=== PATIENT | female | born 1985 | race Caucasian/White ===

== ENCOUNTER 2018-06-25 13:41 | Outpatient (CLI) | payer OTHER | END 2018-06-25 13:42 | disposition home or self-care (01) | LOC: LAB 13:41 | DX: Z01.84 Encounter for antibody response examination (principal) ==

== ENCOUNTER 2018-08-02 01:51 | Emergency (ER) | payer BC, OTHER ==
[2018-08-02 01:54] VITALS: BMI 21.9
[2018-08-02 02:00] VITALS: RESP 18; TEMP 98.2
--- NOTE | 2018-08-02 02:09 | ED PDOC ---
Arrival/HPI - General Chief Complaint: Flu-like Symptoms Time Seen by Provider: 08/02/18 01:55 Historian: Patient - History of Present Illness Narrative History of Present Illness (Text): 08/02/18 02:06 33 year old female, whose past medical history includes history of PPD positive, presents to the emergency department complaining of cold congestion, cough, and body aches for the past 2 days. Patient denies any fever, hemoptysis, chest pain, shortness of breath, nausea, vomiting, diarrhea, urinary symptoms, back pain, neck pain, headache, dizziness, or any other complaints. Time/Duration: Other (2 days) Symptom Onset: Gradual Symptom Course: Unchanged Activities at Onset: Light Context: Home Past Medical History - Provider Review Nursing Documentation Reviewed: Yes - Reproductive Currently : Unknown - Cardiac Hx Cardiac Disorders: No - Pulmonary Hx Respiratory Disorders: No - Neurological Hx Neurological Disorder: No - HEENT Hx HEENT Disorder: No - Renal Hx Renal Disorder: No - Endocrine/Metabolic Hx Endocrine Disorders: No - Hematological/Oncological Hx Blood Disorders: No - Integumentary Hx Dermatological Disorder: No - Musculoskeletal/Rheumatological Hx Musculoskeletal Disorders: No - Gastrointestinal Hx Gastrointestinal Disorders: No - Genitourinary/Gynecological Hx Genitourinary Disorders: Yes Other/Comment: pt is G6,P3,MISCA 2. Ovarian Cyst. - Psychiatric Hx Psychophysiologic Disorder: No Hx Substance Use: No - Surgical History Hx Appendectomy: Yes Family/Social History - Physician Review Nursing Documentation Reviewed: Yes Family/Social History: No Known Family HX Smoking Status: Never Smoked Hx Alcohol Use: No Hx Substance Use: No Allergies/Home Meds Allergies/Adverse Reactions: Allergies No Known Allergies Allergy (Verified 08/02/18 01:54) Home Medications: Home Meds Medication Instructions Recorded Confirmed Desogestrel-Ethinyl Estradiol 1 tab PO DAILY 08/02/18 08/02/18 [Reclipsen 0.15 mg-0.03 mg] Review of Systems - Physician Review All systems were reviewed & negative as marked: Yes - Review of Systems Constitutional: absent: Fevers ENT: Sinus Congestion Respiratory: Cough. absent: SOB Cardiovascular: absent: Chest Pain Gastrointestinal: absent: Diarrhea, Nausea, Vomiting Genitourinary Female: absent: Dysuria, Frequency, Hematuria Musculoskeletal: absent: Back Pain, Neck Pain Neurological: absent: Headache, Dizziness Physical Exam Vital Signs Reviewed: Yes Vital Signs Temp Pulse Resp Pulse Ox 08/02/18 01:54 98.2 F 110 H 18 98 Temperature: Afebrile Pulse: Tachycardic Respiratory Rate: Normal Appearance: Positive for: Well-Appearing, Non-Toxic, Comfortable Pain Distress: None Mental Status: Positive for: Alert and Oriented X 3 - Systems Exam Head: Present: Atraumatic, Normocephalic Pupils: Present: PERRL Extroacular Muscles: Present: EOMI Conjunctiva: Present: Normal Mouth: Present: Moist Mucous Membranes Neck: Present: Normal Range of Motion Respiratory/Chest: Present: Clear to Auscultation, Good Air Exchange. No: Respiratory Distress, Accessory Muscle Use Cardiovascular: Present: Regular Rate and Rhythm, Normal S1, S2. No: Murmurs Abdomen: No: Tenderness, Distention, Peritoneal Signs Back: Present: Normal Inspection Upper Extremity: Present: Normal Inspection. No: Cyanosis, Edema Lower Extremity: Present: Normal Inspection. No: Edema Neurological: Present: GCS=15, CN II-XII Intact, Speech Normal Skin: Present: Warm, Dry, Normal Color. No: Rashes Psychiatric: Present: Alert, Oriented x 3, Normal Insight, Normal Concentration Medical Decision Making ED Course and Treatment: 08/02/18 02:11 Impression: 33 year old female presents complaining of cold, congestion, and body aches for the past 2 days. Plan: -- CXR -- Influenza A B -- Reassess and disposition Prior Visits: Notes and results from previous visits were reviewed. Progress Notes: 08/02/18 02:42 (+)ppd pos in past. cxr neg. susepct viral syndorme vs influenza. stable for dc - Lab Interpretations I have reviewed the lab results: Yes - RAD Interpretation Radiology Orders: 08/02/18 02:06 CXR [CHEST TWO VIEWS (PA/LAT)] [RAD] Stat Disability Program Navigator: ED Physician - Scribe Statement The provider has reviewed the documentation as recorded by the Mary Rodríguez Provider Scribe Attestation: All medical record entries made by the Scribe were at my direction and personally dictated by me. I have reviewed the chart and agree that the record accurately reflects my personal performance of the history, physical exam, medical decision making, and the department course for this patient. I have also personally directed, reviewed, and agree with the discharge instructions and disposition. Disposition/Present on Arrival - Present on Arrival Any Indicators Present on Arrival: No History of DVT/PE: No History of Uncontrolled Diabetes: No Urinary Catheter: No History of Decub. Ulcer: No History Surgical Site Infection Following: None - Disposition Have Diagnosis and Disposition been Completed?: Yes Diagnosis: Viral syndrome Disposition: HOME/ ROUTINE Disposition Time: 02:30 Condition: STABLE Discharge Instructions (ExitCare): Flu, Cough, Runny Nose, and the Common Cold Additional Instructions: return to er with worsening symptoms or concerns. Prescriptions: Oseltamivir Phosphate [Tamiflu] 75 mg PO BID #10 capsule Referrals: [facility] [Outside] - Follow up with primary [facility] at [facility] [place] [Outside] - Follow up with primary Forms: [facility] (Mauritanian), WORK NOTE
[2018-08-02 02:35] VITALS: BP 121/70; PULSE 98; O2SAT 100
--- NOTE | 2018-08-02 09:36 | RAD ---
Date of service: 08/02/2018 HISTORY: cough COMPARISON: Comparison chest dated 10/01/2014 TECHNIQUE: Chest PA and lateral FINDINGS: LUNGS: Lung murguia are hyperinflated though otherwise clear; rule out underlying COPD. PLEURA: No significant pleural effusion identified. No pneumothorax apparent. CARDIOVASCULAR: No aortic atherosclerotic calcification present. Normal cardiac size. No pulmonary vascular congestion. OSSEOUS STRUCTURES: Minor multilevel degenerative spondylosis of the thoracic spine VISUALIZED UPPER ABDOMEN: Normal. OTHER FINDINGS: None. IMPRESSION: Hyperinflation; rule out C underlying COPD. No acute infiltrates.
== END 2018-08-02 02:34 | disposition home or self-care (01) ==
LOC: ED 01:51
DX: B34.9 Viral infection, unspecified (principal)

== ENCOUNTER 2018-09-12 09:48 | Outpatient (CLI) | payer OTHER, BC | END 2018-09-12 09:49 | disposition home or self-care (01) | LOC: LAB 09:48 ==

== ENCOUNTER 2018-09-22 10:28 | Emergency (ER) | payer BC, OTHER ==
[2018-09-22 10:29] VITALS: BMI 22.4
[2018-09-22 10:36] VITALS: RESP 18; TEMP 97.3; O2SAT 100
--- NOTE | 2018-09-22 10:59 | ED PDOC ---
Arrival/HPI - General Historian: Patient - History of Present Illness Narrative History of Present Illness (Text): 09/22/18 10:56 33 y/o female, no significant pmh, nkda, c/o cough x 2 weeks. Pt. stated that she has been coughing x 2 weeks, productive coughing, associated with sorethroat and voice hoarseness today, no chest pain or shortness of breath, no night sweat, no dizziness, no change in vision, no other medical or psychological complaints. Past Medical History - Provider Review Nursing Documentation Reviewed: Yes - Cardiac Hx Cardiac Disorders: No - Pulmonary Hx Respiratory Disorders: No - Neurological Hx Neurological Disorder: No - HEENT Hx HEENT Disorder: No - Renal Hx Renal Disorder: No - Endocrine/Metabolic Hx Endocrine Disorders: No - Hematological/Oncological Hx Blood Disorders: No - Integumentary Hx Dermatological Disorder: No - Musculoskeletal/Rheumatological Hx Musculoskeletal Disorders: No - Gastrointestinal Hx Gastrointestinal Disorders: No - Genitourinary/Gynecological Hx Genitourinary Disorders: Yes Other/Comment: pt is G6,P3,MISCA 2. Ovarian Cyst. - Psychiatric Hx Psychophysiologic Disorder: No Hx Substance Use: No - Surgical History Hx Appendectomy: Yes Family/Social History - Physician Review Nursing Documentation Reviewed: Yes Family/Social History: Unknown Family HX Smoking Status: Never Smoked Hx Alcohol Use: No Hx Substance Use: No Allergies/Home Meds Allergies/Adverse Reactions: Allergies No Known Allergies Allergy (Verified 08/02/18 01:54) Home Medications: Home Meds Medication Instructions Recorded Confirmed Desogestrel-Ethinyl Estradiol 1 tab PO DAILY 08/02/18 08/02/18 [Reclipsen 0.15 mg-0.03 mg] Review of Systems - Review of Systems Constitutional: absent: Fatigue, Fevers Eyes: absent: Vision Changes ENT: Sore Throat. absent: Hearing Changes, Rhinorrhea Respiratory: Cough, Sputum. absent: SOB, Wheezing Cardiovascular: absent: Chest Pain Gastrointestinal: absent: Abdominal Pain, Diarrhea, Nausea, Vomiting Musculoskeletal: absent: Arthralgias, Back Pain Skin: absent: Rash, Pruritis Neurological: absent: Headache Psychiatric: absent: Anxiety, Depression, Suicidal Ideation Physical Exam Vital Signs Reviewed: Yes Vital Signs Temp Pulse Resp BP Pulse Ox 09/22/18 10:35 97.3 F L 109 H 18 108/62 100 Temperature: Afebrile Blood Pressure: Normal Pulse: Tachycardic Respiratory Rate: Normal Appearance: Positive for: Well-Appearing, Non-Toxic, Comfortable Pain Distress: None Mental Status: Positive for: Alert and Oriented X 3 - Systems Exam Head: Present: Atraumatic, Normocephalic Pupils: Present: PERRL Extroacular Muscles: Present: EOMI Conjunctiva: Present: Normal Mouth: Present: Moist Mucous Membranes Pharnyx: Present: Other (+voice hoarseness). No: ERYTHEMA, EXUDATE, TONSILS ENLARGED, Peritonsilar Swelling, Uvular Deviation, Strider, Soft Palate/Uvular Edema Nose (External): Present: Atraumatic. No: Abrasion, Contusion, Laceration, Lesions Nose (Internal): Present: Normal Inspection, No Active Bleeding. No: Rhinorrhea, Septal Hematoma Neck: Present: Normal Range of Motion, Trachea Midline. No: MIDLINE TENDERNESS, Paraspinal Tenderness, Lymphadenopathy Respiratory/Chest: Present: Clear to Auscultation, Good Air Exchange. No: Respiratory Distress, Accessory Muscle Use, Wheezes, Decreased Breath Sounds, Rales, Retracting, Rhonchi, Tachypneic, Tender to Palpation Cardiovascular: Present: Regular Rate and Rhythm, Normal S1, S2. No: Murmurs Abdomen: No: Tenderness, Distention, Peritoneal Signs Back: Present: Normal Inspection Upper Extremity: Present: Normal Inspection. No: Cyanosis, Edema Lower Extremity: Present: Normal Inspection. No: Edema Neurological: Present: GCS=15, CN II-XII Intact, Speech Normal, Motor Func Grossly Intact, Normal Cerebellar Funct Skin: Present: Warm, Dry, Normal Color. No: Rashes Psychiatric: Present: Alert, Oriented x 3, Normal Insight, Normal Concentration Medical Decision Making ED Course and Treatment: 09/22/18 10:58 -Urine hcg is negative -Chest xray -Observe and reassess 09/22/18 11:12 -Chest xray ER wet read show no active disease. -will obtain labs to r/o PE as she is on control, tachycardia -Labs ordered 09/22/18 13:00 -Labs are non-significant except wbc 14 (afebrile, stress induced) -Dimer is negative -Trop is negative -I will treat the patient for bronchitis/pneumonia, rocephine and azithromycin ordered. Her HR improved from 115 to 94 with IVF, no more pain, will discharge home. -Discharge home with prednisone, zithromax, albuterol MDI, coughing syrup, bed rest, stay hydrated, follow up with your own pmd and pulmonlogist within 2 days, return to the ER for any new or worsening signs or symptoms. - RAD Interpretation Radiology Orders: 09/22/18 10:54 CHEST TWO VIEWS (PA/LAT) [RAD] Stat - PA / DUMPER OPERATOR / Resident Statement MD/DO has reviewed & agrees with the documentation as recorded. Disposition/Present on Arrival - Present on Arrival Any Indicators Present on Arrival: No History of DVT/PE: No History of Uncontrolled Diabetes: No Urinary Catheter: No History of Decub. Ulcer: No History Surgical Site Infection Following: None - Disposition Have Diagnosis and Disposition been Completed?: Yes Diagnosis: Leukocytosis, Bronchitis, Laryngitis Disposition: HOME/ ROUTINE Disposition Time: 13:02 Patient Plan: Discharge Condition: IMPROVED Discharge Instructions (ExitCare): Acute Bronchitis Additional Instructions: -Discharge home with prednisone, zithromax, albuterol MDI, coughing syrup, bed rest, stay hydrated, follow up with your own pmd and pulmonlogist within 2 days, repeat wbc within 1 week to ensure it's trending down as it is 14 today, return to the ER for any new or worsening signs or symptoms. Prescriptions: Albuterol HFA [Ventolin HFA 90 mcg/actuation (8 g)] 2 puff IH [id number] PRN #1 inhaler PRN Reason: Other Azithromycin [Zithromax] 250 mg PO DAILY #4 tab Prednisone 50 mg PO DAILY #5 tablet Promethazine HCl/Codeine [Promethazine-Codeine Syrup] 5 ml PO QID PRN #100 ml PRN Reason: Other Referrals: Desiree Ramirez MD [Primary Care Provider] - Follow up with primary Forms: WORK NOTE
[2018-09-22] MEDS ORDERED: Sodium Chloride 0.9% 1,000 ML IV STA (11:20)
--- NOTE | 2018-09-22 11:45 | RAD ---
Date of service: 09/22/2018 HISTORY: cough x 2 weeks COMPARISON: 08/02/2018 TECHNIQUE: Chest PA and lateral views FINDINGS: LUNGS: No active pulmonary disease. PLEURA: No significant pleural effusion identified. No pneumothorax apparent. CARDIOVASCULAR: No aortic atherosclerotic calcification present. Normal cardiac size. No pulmonary vascular congestion. OSSEOUS STRUCTURES: No significant abnormalities. VISUALIZED UPPER ABDOMEN: Normal. OTHER FINDINGS: None. IMPRESSION: No active disease.
[2018-09-22 11:49] LABS: BASO # 0.05 K/mm3 (0.0-2.0); BASO % 0.3 % (0.0-3.0); EOS # 0.8 (0.0-0.7); EOS % 5.8 % (1.5-5.0); HEMOGLOBIN 13.3 g/dL (12.0-16.0); LYMPH # 2.3 (1.2-3.4); MEAN CELL VOLUME 83.7 fl (80.0-105.0); MEAN CORPUSCULAR HEMOGLOBIN 27.4 pg (25.0-35.0); MEAN CORPUSCULAR HGB CONC 32.7 g/dl (31.0-37.0); MEAN PLATELET VOLUME 9.4 fl (7.0-11.0); MONO # 0.9 (0.1-0.6); MONO % 5.9 % (1.0-6.0); RBC 4.86 10^6/uL (3.5-6.1); RED CELL DISTRIBUTION WIDTH 13.8 % (11.5-14.5); WHITE BLOOD COUNT 14.5 10^3/uL (4.5-11.0)
[2018-09-22 11:59] LABS: ALB/GLOB RATIO 1.2 (1.1-1.8); ALBUMIN 4.3 g/dL (3.0-4.8); AST/SGOT 26 U/L (14-36); BLOOD UREA NITROGEN 15 mg/dL (7-21); CALCIUM 9.3 mg/dL (8.4-10.5); GFR NON-AFRICAN AMERICAN > 60
[2018-09-22 12:03] LABS: ALT/SGPT < 6 U/L (7-56)
[2018-09-22 12:12] LABS: TROPONIN I < 0.01 ng/mL
[2018-09-22] MEDS ORDERED: cefTRIAXone 1 gm 1 GM/100 ML BAG IVPB STA (12:19)
[2018-09-22 12:28] VITALS: BP 119/87
[2018-09-22 13:04] VITALS: PULSE 94
== END 2018-09-22 13:52 | disposition home or self-care (01) ==
LOC: ED 10:28
DX: J40 Bronchitis, not specified as acute or chronic (principal); J04.0 Acute laryngitis; D72.829 Elevated white blood cell count, unspecified
CPT/HCPCS: 71046; 80053; 81025; 84484; 85025; 85378; 96361; 96365; 99283; J0696; J7030

== ENCOUNTER 2018-10-28 10:55 | Day surgery (SDC) | payer OTHER ==
[2018-10-23 11:15] VITALS: BMI 23.0
[2018-10-28 11:36] VITALS: RESP 20
[2018-10-28 11:36] LABS: PARTIAL THROMBOPLASTIN TIME 32.9 Seconds (26.9-38.3); PROTHROMBIN TIME 11.3 SECONDS (9.4-12.5)
[2018-10-28] MEDS ORDERED: Strong Iodine Topical Sol. 5%-10% ONE (13:21)
[2018-10-28] MEDS ORDERED: Midazolam 2 MG/2 ML VIAL ONE (13:29)
[2018-10-28] MEDS ORDERED: Propofol 10 mg/ml Inj (20 ML) ONE (13:29)
[2018-10-28] MEDS ORDERED: Lactated Ringer's 1,000 ML IV SCH (14:00)
[2018-10-28 14:34] VITALS: PULSE 78
[2018-10-28 15:00] VITALS: BP 134/59; TEMP 97.6; O2SAT 99
--- NOTE | 2018-10-29 00:20 | OP ---
PROCEDURE DATE: 10/28/2018 PREOPERATIVE DIAGNOSIS: Endocervical dysplasia. POSTOPERATIVE DIAGNOSIS: Endocervical dysplasia. PROCEDURE PERFORMED: Endocervical curettage with a LEEP cone biopsy. SURGEON: John Del Valle MD ANESTHESIA: General LMA. ESTIMATED BLOOD LOSS: Minimal. COMPLICATIONS: No complications occurred. DESCRIPTION OF PROCEDURE: The procedure went as follows: After a long discussion was held with the patient and the entire procedure was explained, and the patient agreed to the procedure and to the reason, the patient signed her consent and was brought into the operating room. General LMA anesthesia was induced. The patient was prepped and draped in the usual sterile fashion. Examination under anesthesia revealed the uterus that was topped on both sides, right and left adnexa were negative. As a note, the cervix itself looked like it underwent some trauma associated with the patient's previous cervical delivery. An endocervical curettage was first taken that specimen was sent to Pathology for examination. This was flowed with staining the cervix with Lugol solution. There was a small abnormality visualized on the 5 o' clock position of the endocervical and cervical area. Using a LEEP, LEEP loop cone biopsy was performed. That specimen was sent to Pathology for examination. This was followed with cauterization of little bleeding points and then followed with application of Monsel. Hemostasis was excellent throughout this entire time. Total blood loss was may be 10 mL. The patient again was rechecked and found no other bleeding points noted. The procedure itself was terminated at this point. The patient was gently awakened and sent to the recovery room in stable condition. John Del Valle MD
== END 2018-10-28 15:55 | disposition home or self-care (01) ==
LOC: SDS 10:55
PROVIDERS: ATTEND Obstetrics & Gynecology Gynecology
DX: N87.0 Mild cervical dysplasia (principal)
CPT/HCPCS: 36415; 57522; 84703; 85610; 85730; 88305; 88307; J1885; J2001; J2250; J2405; J2704; J2765; J3010; J7120 ×2